=== PATIENT | female | born 1990 | race American Indian/Alaskan Native ===

== ENCOUNTER 2020-12-16 15:55 | Inpatient (IN) | payer OTHER ==
[~2020-12-16] VITALS: Ht 170.2 cm; Wt 86.6 kg
[~2020-12-16 15:55] MED LIST: AUGMENTIN 875-1 EACH PO
--- NOTE | 2020-12-16 19:07 | NUR ---
1850: PT ARRIVES TO UNIT FROM PACU ON BED. AWAKE AND ALERT ON ARRIVAL. VSS, RESP EVEN AND UNLABORED. DENIES PAIN AND NAUSEA. LAP SITES X3 WITH MINIMAL DRAINAGE. SCDS IN PLACE. MOTHER AT THE BEDSIDE. ICE WATER AND CRACKERS PROVIDED. NO NEEDS VOICED, CALL LIGHT WITHIN REACH
--- NOTE | 2020-12-16 21:29 | PR ---
[facility] [address] [facility] [place], [place] [address] Signed Progress Notes IP Datetime Report Generated by CPN: 12/16/2020 21:29 PROGRESS NOTES: [id number] Impression: Normal Progression of Labor; Reassuring Heart Rate Procedures: Artificial ROM Plan: Continue Present Management; Anticipate Vaginal Delivery VITAL SIGNS: [id number] Vital Signs: Reviewed EXAM: [id number] Dilatation: 6.0 Effacement: 95 Station: -1 Contractions: q 3-4 min MEMBRANES: [id number] Membranes Status: Ruptured ROM Note: AROM per Dr Farrell Comments: Progressing well s/p Lauren x 2 doses Amniotomy performed Pt requesting pain mgmt; declines epidural, will try nitrous Anticipate FETUS A: [id number] FHR Baseline: 135 Variability: Moderate 6-25bpm Accelerations: 15X15 FHR Category: Category I Comments on Fetus A: No evidence of acidemia FETUS B: [id number] Signing Physician: Sayra Farrell DO Copies: ~ *Electronically Signed* 12/16/202128 SAYRA FARRELL DO PATIENT NAME: HUSAM IVERSON PROGRESS NOTE DATE OF : 91 PHYSICIAN: SAYRA FARRELL DO RPT #: [id number] REPORT IS CONFIDENTIAL AND NOT TO BE RELEASED WITHOUT AUTHORIZATION
--- NOTE | 2020-12-17 13:54 | PR ---
[facility] [address] [place], [place] [address] Signed PP Progress Notes Datetime Report Generated by CPN: 12/17/2020 13:54 SUBJECTIVE: [id number] Pain: Within Normal Limits Pain Comments: Not yet voiding; bladder scanned for 600mL Nausea/Vomiting: Denies Flatus: Yes Bowel Movement: No Vital Signs: [id number] Vital Signs: Reviewed; Within Normal Limits EXAM: Ongoing Cardiovascular: Normal Respiratory: Normal Abdomen/Uterus: Normal Lochia: Normal Extremities: Normal Progress: Normal Exam Comments: NAD, lying in bed RRR FFBU No edema, neg April's BL IMPRESSION/PLAN/PROCEDURES: [id number] Impression: Normal Progression Plan: Continue Present Management Other Procedures: straight cath bladder Progress Notes: G1 now P1001 PPD#1 s/p complicated by PPH 1200mL from vaginal laceration -received TXA -experienced near syncopal episode this morning, hgb at that time was 9.9 from 11.7 immediately after hemorrhage and 12.6 on admission. She received additional IV fluids and has had no further episodes. Orthostatics were negative and vital signs have remained stable and within normal limits today. -Ledezma catheter was removed at 1030am and she has not yet been able to void. After second attempt just now bladder was scanned for 600mL. Straight catheter ordered, reviewed recommendation to try voiding within 30-45 minutes of emptying bladder. -Will continue to monitor, repeat hemogram tomorrow AM. Anticipate DC to home tomorrow Signing Physician: Sherley Farrell, DO *Electronically Signed* 10/10/21 1354 SHERLEY FARRELL DO PATIENT NAME: HUSAM IVERSON PROGRESS NOTE DATE OF : 91 PHYSICIAN: SHERLEY FARRELL DO RPT #: [id number] REPORT IS CONFIDENTIAL AND NOT TO BE RELEASED WITHOUT AUTHORIZATION [address] [place] [address] Signed Copies: ~ *Electronically Signed* 12/17/20 [facility] SHERLEY FARRELL DO PATIENT NAME: HUSAM IVERSON PROGRESS NOTE DATE OF : [birth year] PHYSICIAN: SHERLEY FARRELL DO RPT #: [id number] REPORT IS CONFIDENTIAL AND NOT TO BE RELEASED WITHOUT AUTHORIZATION
--- NOTE | 2020-12-18 08:15 | PR ---
[facility] [address] [place], [place] [address] Signed PP Progress Notes Datetime Report Generated by CPN: 12/18/2020 08:15 SUBJECTIVE: [id number] Pain: Within Normal Limits Pain Comments: Not yet voiding; bladder scanned for 600mL Nausea/Vomiting: Denies Flatus: Yes Bowel Movement: No Vital Signs: [id number] Vital Signs: Reviewed; Within Normal Limits EXAM: Ongoing Cardiovascular: Normal Respiratory: Normal Abdomen/Uterus: Normal Lochia: Normal Vulva/Perineum: Normal Extremities: Normal Progress: Abnormal Exam Comments: NAD, resting in bed RRR No dyspnea/ retractions Abd SNTND FFBU Extremities with trace bilateral edema, neg terri's BL IMPRESSION/PLAN/PROCEDURES: [id number] Impression: Normal Progression; Difficulties Plan: Continue Present Management Other Procedures: Iron infusion Progress Notes: PPD#2 s/p , complicated by PPH -hgb 7.9 this am from 9.9 yesterday. Dizziness resolved, VSS, does complain of feeling tired, excellent UOP -risks, benefits, alternatives to iron infusion reviewed, elects to proceed Pain well-controlled with orals, tolerating regular diet, ambulating/ voiding without difficulty Anticipate DC later today Signing Physician: Sherley Farrell DO *Electronically Signed* 12/18/20 0815 SHERLEY FARRELL DO PATIENT NAME: HUSAM IVERSON PROGRESS NOTE DATE OF : 89 PHYSICIAN: SHERLEY FARRELL DO RPT #: [id number] REPORT IS CONFIDENTIAL AND NOT TO BE RELEASED WITHOUT AUTHORIZATION [address], [place] [address] Signed Copies: ~ *Electronically Signed* 12/18/20 08 SHERLEY FARRELL DO PATIENT NAME: HUSAM IVERSON PROGRESS NOTE DATE OF : 91 PHYSICIAN: SHERLEY FARRELL DO RPT #: [id number] REPORT IS CONFIDENTIAL AND NOT TO BE RELEASED WITHOUT AUTHORIZATION
== END 2020-12-18 14:50 | disposition home or self-care (01) | DRG 807 ==
LOC: FBCO 15:55 → FBC 16:28
PROVIDERS: ADMIT Obstetrics & Gynecology; ATTEND Obstetrics & Gynecology
PROC: 10E0XZZ Delivery of Products of Conception, External Approach (ICD-10-PCS; principal; 2020-12-16)
PROC: 0KQM0ZZ Repair Perineum Muscle, Open Approach (ICD-10-PCS; 2020-12-16)
PROC: 10907ZC Drainage of Amniotic Fluid, Therapeutic from Products of Conception, Via Natural or Artificial Opening (ICD-10-PCS; 2020-12-16)
DX: O99.824 Streptococcus B carrier state complicating childbirth (principal); Z37.0 Single live birth; O72.1 Other immediate postpartum hemorrhage; O70.1 Second degree perineal laceration during delivery; Z3A.38 38 weeks gestation of pregnancy; O99.284 Endocrine, nutritional and metabolic diseases complicating childbirth; E03.9 Hypothyroidism, unspecified; O99.344 Other mental disorders complicating childbirth; F41.9 Anxiety disorder, unspecified
CPT/HCPCS: 85027; 85384; 85610; 85730; A9270; J2540; J2590; J3010; J7121; Q0138

== ENCOUNTER 2021-05-31 09:48 | Day surgery (SDC) | payer OTHER ==
[~2021-05-31] VITALS: Ht 170.2 cm; Wt 70.5 kg
--- NOTE | ~2021-05-31 | OR ---
[facility] [address] [place], [place] [address] Draft DATE OF OPERATION: 05/31/2021 SURGEON: Sherley Farrell DO PROCEDURE: Excision of vaginal granulation tissue. POST ANESTHESIA NURSE: Jered Valencia M.D. PREOPERATIVE DIAGNOSIS: Vaginal granulation tissue status post vaginal delivery. POSTOPERATIVE DIAGNOSIS: Vaginal granulation tissue status post vaginal delivery. ANESTHESIA: Monitored anesthesia care. BLOOD LOSS: 5 mL. COMPLICATIONS: None. FINDINGS: A very friable granulation tissue at the 6 o'clock position of the hymenal ring base encompassing approximately 1 cm INDICATIONS: The patient is a 30-year-old G1, P1, status post vaginal delivery six months ago, who had findings of granulation tissue noted at the time of her six week followup. She was lost to care and returned six months later after seeing her PCP with complaints of pain and persistent bleeding several months after delivery. She presented to her PCP with complaints of vaginal pain and bleeding, noted to have significant granulation tissue and was referred back to Gynecology. Risks, benefits and alternatives to excision of granulation tissue were discussed including risk of recurrence. The patient elected to proceed. PROCEDURE IN DETAIL: PATIENT NAME: HUSAM IVERSON OPERATIVE REPORT DATE OF : 91 REPORT #: [id number] PHYSICIAN: SHERLEY FARRELL DO PCP: [facility] REPORT IS CONFIDENTIAL AND NOT TO BE RELEASED WITHOUT AUTHORIZATION [facility] [address] [place], [place] [address] Draft The patient was taken to the operating room where she was placed under monitored anesthesia care. Prepped and draped in normal sterile fashion in dorsal lithotomy. Friable granulation tissue was grasped with forceps to examine the base of the tissue, but in the course of doing so, the tissue itself from the vaginal mucosa and was sent to pathology for further assessment. This created an area of exposed underlying tissue which was cauterized with Bovie cautery and then fresh margins were reapproximated with 4-0 Vicryl in a running locked fashion reapproximating the hymenal ring from approximately 8 o' clock to 5 o' clock. Excellent hemostasis was noted following closure. The patient was taken to recovery in stable and satisfactory condition. All sponge and instrument counts were correct. DO BETSEY Benitez/MANJITL /[id number] Copies: ~ PATIENT NAME: HUSAM IVERSON OPERATIVE REPORT DATE OF : [birth year] REPORT #: [id number] PHYSICIAN: SHERLEY FARRELL DO PCP: [facility] REPORT IS CONFIDENTIAL AND NOT TO BE RELEASED WITHOUT AUTHORIZATION
[~2021-05-31 09:48] MED LIST changes: +LEVOTHYROXINE75 MC1 PO
--- NOTE | 2021-05-31 12:28 | NUR ---
05/31/21 1228 Keara Andres 1224-PATIENT ARRIVED TO PACU ON 6L MASK NONAROUSABLE RR EVEN. SB/SR. IVF INFUSING. BROOKLYN PAD IN PLACE CDI.
--- NOTE | 2021-05-31 13:00 | NUR ---
PATIENT BACK TO ROOM FROM PACU. REPORT RECEIVED FROM OSMAN GONZALES. PATIENT IS DROWSY AND EASILY FALLS ASLEEP. RESP EVEN AND UNLABORED. VSS. PATIENT RATES PAIN 0/10 AND DENIES NAUSEA. BROOKLYN PAD CLEAN, DRY, AND INTACT. PROVIDED PATIENT WITH WATER AND APPLESAUCE. MOM AT BEDSIDE. CALL LIGHT WITHIN REACH.
--- NOTE | 2021-05-31 14:55 | NUR ---
1430 AMB TO BR VOIDS 100MLS YELLOW URINE. AMB WELL.NO DRAINAGE ON BROOKLYN PAD.WANTS TO GO HOME. GETTING DRESSED.
--- NOTE | 2021-06-05 14:35 | PATH ---
[facility] [address] [place], [place] [address] Signed SPECIMEN(S): A VAGINAL GRANULATION TISSUE SPECIMEN SOURCE: A. VAGINAL GRANULATION TISSUE CLINICAL HISTORY: No preop or clinical information is given on requisition. FINAL PATHOLOGIC DIAGNOSIS: Granulation tissue, vagina, excision: - Fragments of granulation tissue. NAL:cml:C2NR MICROSCOPIC EXAMINATION: Histologic sections of all submitted blocks are examined by light microscopy. These findings, together with the gross examination, support the pathologic diagnosis. GROSS DESCRIPTION: The specimen, labeled "TM," and designated on the requisition "granulation tissue, vaginal granulation tissue," is received in formalin and consists of four pieces of ragged, garcía to dark brown, somewhat fibrous, rubbery, and glistening tissue fragments from 0.2 to 2.5 cm in greatest dimension. The specimen is submitted in toto in one cassette (A1). AI (under the direct supervision of a pathologist) The Gross Description was prepared using a voice recognition system. The report was reviewed for accuracy; however, sound-alike word errors, addition and/or deletions may occur. If there is any question about this report, please contact Client Services. PERFORMING LABORATORY: The technical component was performed by [facility], [address] [place] [id number] (Food Analyst: Cele Mcbride MD; CLIA# [id number]). [facility] [address] [address] (CLIA# [id number]). Diagnostician: Hope Vaughn MD Pathologist Electronically Signed 06/05/2021 PATIENT NAME: HUSAM IVERSON PATHOLOGY DATE OF : 89 REPORT #: [id number] PHYSICIAN: [facility] PCP: [facility] REPORT IS CONFIDENTIAL AND NOT TO BE RELEASED WITHOUT AUTHORIZATION [address] [address] Signed Copies: ~ PATIENT NAME: HUSAM IVERSON PATHOLOGY DATE OF : [birth year] REPORT #: [id number] PHYSICIAN: [facility] PCP: [facility] REPORT IS CONFIDENTIAL AND NOT TO BE RELEASED WITHOUT AUTHORIZATION
== END 2021-05-31 14:45 | disposition home or self-care (01) ==
LOC: DS 09:48
PROVIDERS: ATTEND Obstetrics & Gynecology
PROC: 0UBG7ZZ Excision of Vagina, Via Natural or Artificial Opening (ICD-10-PCS; principal; 2021-05-31 13:00)
DX: N89.8 Other specified noninflammatory disorders of vagina (principal); E03.9 Hypothyroidism, unspecified; E28.2 Polycystic ovarian syndrome
CPT/HCPCS: 00940; 86850; 86900; 86901; J1100; J1885; J2001; J2405; J2704; J3010; J7121